=== PATIENT | female | born 1970 | race Caucasian/White ===

== ENCOUNTER 2019-04-28 19:46 | Inpatient (IN) | payer OTHER ==
[~2019-04-28] VITALS: Ht 160 cm; Wt 50.8 kg
[2019-04-28 20:52] VITALS: Ht 160 cm; Wt 50.8 kg
--- NOTE | 2019-04-28 20:55 | NUR ---
PT BIB BLS [facility] FROM AN ADULT CARE FACILITY WITH REPORTS OF MULITPLE EPISPDES OF VOMITING SINCE NOON TODAY. PER MEDIC NO VOMITING NOTED AND PT FEELS "HOT TO TOUCH." PER MEDIC, PT HAS HISTORY OF MENTAL RETARDATION AND IS "AT HER NORMAL BASELINE WHICH IS ALERT, AWAKE, UNABLE TO ANSWER QUESTIONS, AND MAKES NOISES TO SPEAK." PT ABLE TO AMBULATE ON HER OWN AT HER FACILITY SHE LIVES PER MEDIC. PT IS ALERT, AWAKE, AND UNABLE TO ANSWER QUESTIONS, PT ABLE TO POINT AT HER STOMACH WHEN ASKED IF SHE FEELS ANY PAIN, PT MAKES INCOMPREHENSIBLE NOISES TO SPEAK. CUSTOMER SUPPLY CHAIN ANALYST AT THE BEDSIDE AND STATED THE "LAST TIME SHE VOMITED WAS AT 6PM AND SHE HAS NOT BEEN ABLE TO EAT OR DRINK ANYTHING TODAY." NO VOMITING NOTED AT THIS TIME. AWAITING MSE BY . WILL CONT TO MONITOR.
[2019-04-28 21:29] LABS: PLATELET COUNT 161 x10^3mcL (130-400); RED CELL DISTRIBUTION WIDTH 13.9 % (11.5-14.5)
--- NOTE | 2019-04-28 21:36 | NUR ---
DR SLAUGHTER MADE AWARE OF CRITICAL RESULT OF WBC-21.2.
[2019-04-28 21:43] LABS: CALCIUM 8.4 mg/dL (8.5-10.1); CARBON DIOXIDE 22.9 mmol/L (21-32); CHLORIDE SERUM 104 mmol/L (98-107); CREATININE SERUM 0.8 mg/dL (0.6-1.0); GFR1 > 60 mL/min; GLUCOSE SERUM 130 mg/dL (74-106); POTASSIUM SERUM 3.3 mmol/L (3.5-5.1); SODIUM SERUM 138 mmol/L (136-145)
[2019-04-28 21:45] LABS: ALBUMIN 2.8 g/dL (3.4-5.0); ALKALINE PHOSPHATASE 65 U/L (46-116); ALT/SGPT 12 U/L (14-59); AST/SGOT 17 U/L (15-37); BILIRUBIN TOTAL 0.4 mg/dL (0.20-1.00); CHOLESTEROL 104 mg/dL (<200); HDL CHOLESTEROL 57 mg/dL (40-60); LIPASE 217 IU/L (73-393)
[2019-04-28 21:49] LABS: BAND NEUTROPHIL 3 % (0-10); BASOPHIL 0 % (0-2); MONOCYTE 4 % (0-7); SEGMENTED NEUTROPHILS 85 % (37-75)
[2019-04-28 21:50] LABS: rbc morphology (normal/abnorm) NORMAL (NORMAL)
--- NOTE | 2019-04-28 22:06 | NUR ---
FIRST FLUID BOLUS INFUSING, NO INFILTRATION NOTED.
--- NOTE | 2019-04-28 22:45 | NUR ---
PT TOLERATED STRAIGHT CATHETER WELL. OBTAINED URINE SAMPLE. PT BECAME ANXIOUS AND POINTED AT HER PAJAMAS AND TRYING TO GET OUT OF BED. CLOTHED PAJAMAS ON PATIENT. PT AGITATED AND TRYING TO GET OUT OF BED STILL. UNABLE TO SOOTH PATIENT. NOTIFIED DR SLAUGHTER OF AGITATION AND ANXIOUSNESS OF PATIENT. DR SLAUGHTER TO ORDER MEDICATIONS.
--- NOTE | 2019-04-28 22:58 | NUR ---
PT MEDICATED WITH HALDOL AT THIS TIME. PT IS CALM. PT LAYING IN BED WITH A STUFFED PETROLEUM REFINERY OPERATOR GAVE HER. PT IS ALERT AWAKE AND FOLLOWED BORING MACHINE OPERATOR PRODUCTION INSTRUCTION TO LAY IN BED. FLUIDS INFUSING NO PROBLEM. PT ON FULL CM, NSR, VSS, WILL CONT TO MONITOR.
[2019-04-28 23:30] LABS: UA SPECIFIC GRAVITY 1.015 (1.005-1.035); microscopic required? YES; urine erythrocyte 2+ (NEGATIVE)
[2019-04-29] VITALS (7 sets, daily range): BP systolic 89–113; BP diastolic 41–80
--- NOTE | 2019-04-29 | NUR ---
PT RIGHT SIDE LAYING WITH EYES CLOSED, AROUSABLE TO TOUCH, PT IN NO DISTRESS, RESP E/U, SKIN PINK WARM AND DRY. PT ON MONITOR, VSS, WILL CONT TO MONITOR. COCOA PRESS OPERATOR SON ESPERANZA PANDYA TAKE HIS MOM HOME AND COME BACK.
[2019-04-29] MEDS ORDERED: FERROUS SULFAT325 M2 (00:20)
[2019-04-29] MEDS ORDERED: CLARITIN10 MG PO (00:20)
--- NOTE | 2019-04-29 01:13 | NUR ---
PER DR KASANDRA SULLIVAN OK TO MOVE PATIENT OFF THE FLOOR TO [facility]. PT IS RESTING IN RIGHT SIDE LAYING POSITION OF COMFORT, NO DISTRESS NOTED, RESP E/U, SKIN IS PINK WARM AND DRY. REPORT GIVEN TO LIANNA PERALES ON [facility] FLOOR WHO WILL ASSUME FURTHER CARE OF THIS PATIENT.
--- NOTE | 2019-04-29 01:32 | NUR ---
ADMITTED PT FROM ER WITH CC. VOMITING TO COFFEE GROUND EMESIS AND FEVER TODAY.PT HAS MENTAL RETARDATION.APHASIC BUT ABLE TO DO HAND GESTURE TO COMMUNICATE.BOARD AND COAGULANT DIPPER-HEIDI FLOYD AT BEDSIDE AND PROVIDED INFORMATION ABOUT PT.BP 113/62 MMHG,HR 62.ADMISSION CARE RENDERED.KEPT WARM AT THIS TIME PREFERRED BY PT.NO N/V NOTED AT THIS TIME.BEDALARM ON AT ALL TIMES.WILL CONTINUE TO MONITOR.
[2019-04-29 01:54] LABS: MAGNESIUM 1.8 mg/dL (1.8-2.4)
[2019-04-29 01:55] LABS: CHOLESTEROL/HDL RATIO 1.9
--- NOTE | 2019-04-29 04:49 | NUR ---
PT SLEPT WELL SINCE ADMISSION.NO N/V NOTED.NO ASE NOTED FROM ROCEPHIN IV ATB GIVEN IN ER.ALL NEEDS MET.BEDALARM ON AT ALL TIMES.WILL CONTINUE TO MONITOR.
--- NOTE | 2019-04-29 07:30 | NUR ---
PT IS NONVERBAL, UNABLE TO ACCESS ORIETATION. PT USES HAND SIGNALS TO COMMUNICATE MINIMAL NEEDS. PT DENIES H/A AND DIZZINESS. RESP EVEN AND UNLABORED. NO DISTRESS NOTED. NORMAL S1S2 NOTED. ABDOMEN SOFT, NON TENDER, NONDISTENDED. BOWELS SOUNDS ACTIVE X4 QUADS. PT HAS C/O N/V DURING NOC. SHIFT. SKIN CDI. NO EDEMA. IV CATH N/S LOCKED TO R HAND 20G, PATENT. SITE WNL. CALL LIGHT WITHIN REACH. FALL PROTOCOL FOLLOWED. AIR MATRESS IN PLACE. PT TURNS AND REPOSITIONS IN BED BY SELF. PT WILL BE PROMPTED TO TURN AND REPOSITION Q 2 HOURS AND NEEDED. CALL LIGHT WITHIN REACH.
--- NOTE | 2019-04-29 08:48 | NUR ---
TYLENOL 650MG PO GIVEN CRUSHED IN CHOCOLATE SUGER FREE PUDDING FOR TEMP OF 102.5. COOLING MEASURES IN PLACE. PT WEAK AND NONVERBAL. CALL LIGHT WITHIN REACH. BED IN LOWEST POSTION. WILL CONTINUE TO MONITOR.
--- NOTE | 2019-04-29 09:25 | NUR ---
PAGED DR. TORRES TO REPORT PT HAD GRAM NEGATIVE RODS IN THE BLOOD AND TEMP OF 102.5F. AWAITING CALL BACK. PT MADE AWARE.
--- NOTE | 2019-04-29 09:45 | NUR ---
PT TEMP IS NOW 99.1F. COOLING MEARSURES IN PLACE. PT NOT TOLERATING FOOD AT THIS TIME. PT IS NAUSEUS AND WEAK. HAS NOT EATEN BREAKFAST. EXTRA FLUIDS GIVEN AND ENCOURAGED. CALL LIGHT WITHIN REACH. BED IN LOWEST POSITION.
--- NOTE | 2019-04-29 09:45 | NUR ---
PT TEMP IS NOW 99.1F. COOLING MEARSURES IN PLACE. PT NOT TOLERATING FOOD AT THIS TIME. PT IS NAUSEOUS AND WEAK. HAS NOT EATEN BREAKFAST. EXTRA FLUIDS GIVEN AND ENCOURAGED. CALL LIGHT WITHIN REACH. BED IN LOWEST POSITION.
--- NOTE | 2019-04-29 10:01 | NUR ---
REPORTED TO DR. TORRES THAT PT'S HAS GRAM NEGATIVE RODS IN BLOOD, PT REFUSED LAB DRAWS THIS MORNING, AND PT HAS TEMP 102.5 WITH COOING MEASURES IN PLACE. PT'S TEMP HAS REDUCED TO 99.1F.
--- NOTE | 2019-04-29 10:16 | NUR ---
DR. CRAWFORD AND MED TEAM MET WITH PT. PT WILL HAVE LABS DRAWN FOR EVAL, S/T EVAL AND FUTHER EVALUATION.
--- NOTE | 2019-04-29 10:37 | NUR ---
SPEECH THERAPIST ATTEMPTED TO DO S/T EVAL. PT REFUSED TREATMENT. SPEECH THERAPIST PERRY STATED HE WILL TRY ANOTHER TEST TOMORROW.
[2019-04-29 10:52] LABS: PLATELET COUNT 133 x10^3mcL (130-400); RED CELL DISTRIBUTION WIDTH 13.9 % (11.5-14.5)
[2019-04-29 10:53] LABS: BASOPHIL % 0 % (0-2)
[2019-04-29 11:40] LABS: CALCIUM 7.6 mg/dL (8.5-10.1); CARBON DIOXIDE 22.3 mmol/L (21-32); CHLORIDE SERUM 108 mmol/L (98-107); GFR1 > 60 mL/min; GLUCOSE SERUM 130 mg/dL (74-106); POTASSIUM SERUM 3.5 mmol/L (3.5-5.1); SODIUM SERUM 140 mmol/L (136-145)
--- NOTE | 2019-04-29 13:40 | NUR ---
DUE MED GIVEN AND TOLERATED WELL. PT IS NORMOTHERMIC AT THIS TIME. RESP EVEN AND UNLABORED. NO DISTRESS NOTED. PT DENIES PAIN. VENEER GRADER AT BEDSIDE. CALL LIGHT WITHIN REACH.
--- NOTE | 2019-04-29 17:28 | NUR ---
ZOFRAN 4MG IVP GIVEN FOR N/V. TYLENOL 650MG PO GIVEN CRUSHED IN APPLE SAUCE FOR TEMP OF 103.4. COOLING MEASURES IN PLACE. RESP EVEN AND UNLABORED. WILL CONTINUE TO MONITOR. 2 CARETAKERS AT BEDSIDE. CALL LIGHT WITHIN REACH.
--- NOTE | 2019-04-29 18:28 | NUR ---
PT IS AAOX1 TO SELF, NONVERBAL. PT HAS TEMP OF 103.4 AT TIME. COOLING MEASURES IN PLACE. PT KEEPS REMOVING COOLING MEASURES. WILL CONTINUE TO MONITOR. RESP EVEN AND UNLABORED. IV CATH NS LOCKED. SITE WNL. BED IN LOW POSTION. PT TURNED AND REPOSTIONED SELF THROUGHOUT SHIFT. AIR MATRESS IN PLACE FOR SKIN MAINTENANCE. CALL LIGHT WITHIN REACH. FALL PROTOCOL FOLLOWED. BED IN LOWEST POSTION. WILL ENDORSE ALL CARE TO NOC RN.
--- NOTE | 2019-04-29 19:40 | NUR ---
RECEIVED REPORT FROM AM NURSE. PT LAYING DOWN IN BED WITH EYES CLOSED. PT NONVERBAL, USES FACIAL GESTURES AND HEAD NODDING TO COMMUNICATE. MED-KRISHAN, NO S/S OF PAIN. PALPABLE PULSES TO ALL EXTREMETIES. NO EDEMA NOTED. DIMINISHED BREATH SOUNDS TO LOWER LOBES. BREATHING EVEN AND UNLABORED ON RA. NO ACUTE DISTRES NOTED. ABD SOFT AND FLAT. ACTIVE BS X4 QUAD. INCONTINENT TO URINE. GENERALIZED WEAKNESS. BEDFAST AT THIS TIME. WAITING FOR PT EVAL. IV TO RFA PATENT AND INTACT. SITE FREE FROM REDNESS AND SWELLING. BED AT LOWEST SETTING. SIDE RAILS X2 UP. CALL LIGHT WITHING REACH. WILL CONTINUE TO MONITOR.
--- NOTE | 2019-04-29 21:55 | NUR ---
PT BP 95/41, PT AWAKE, RESPONDS TO VERBAL STIMULI. DR SMITH MADE AWARE. RECEIVED ORDER FOR 250CC NS BOLUS. BOLUS STARTED RIGHT NOW.
--- NOTE | 2019-04-29 23:05 | NUR ---
BOLUS OF 250CC NS FINSHED AT THIS TIME. CURRENT BP 96/53 MAP 65, HR 49. NO ACUTE DITRESS NOTED. DR SMITH MADE AWARE OF VITALS. STATES PT WILL PUT ON TELE. PER DR SMITH, IV FLUIDS WILL BE HOLD FOR NOW. WILL CONTINUE TO MONITOR.
--- NOTE | 2019-04-30 00:14 | NUR ---
PT LAYING DOWN IN BED WITH EYES CLOSED. BREATHING EVEN AND UNLABORED ON RA. NO ACUTE DISTRESS NOTED. BED AT LOWEST SETTING WITH HOB ELEVATED. SIDE RAILS X2 UP. CALL LIGHT WITHING REACH. WILL CONTINUE TO MONITOR.
--- NOTE | 2019-04-30 04:39 | NUR ---
PT TELE READING JUNCTIONAL, HR 51. ASYMPTOMATIC. DR SMITH MADE AWARE. NO NEW ORDERS RECEIVED. WILL CONTINUE TO MONITOR.
[2019-04-30 06:02] VITALS: BP 100/78
[2019-04-30 06:23] LABS: RED CELL DISTRIBUTION WIDTH 14.1 % (11.5-14.5)
--- NOTE | 2019-04-30 06:30 | NUR ---
PT SLEPT AT INTERVALS THROGHOUT THE NIGHT. BREATHING EVEN AND UNLABORED ON RA. NO ACUTE DISTRESS NOTED. PT HURLEY AN EPISODE OF STOOL. CAROLINE CARE RENDERED, PT TOLERATED WELL. ALL NEEDS ASSESSED AND ATTENDED. IV TO RFA FLUSHING WELL. SITE WNL. BED AT LOWEST SETTING. SIDE RAILS X2 UP. CALL LIGHT SURJIT REACH. WILL ENDORSE CARE TO AM NURSE.
[2019-04-30 06:31] LABS: CARBON DIOXIDE 22.6 mmol/L (21-32); CHLORIDE SERUM 110 mmol/L (98-107); CREATININE SERUM 0.9 mg/dL (0.6-1.0); GFR1 > 60 mL/min; GLUCOSE SERUM 112 mg/dL (74-106); MAGNESIUM 1.9 mg/dL (1.8-2.4); POTASSIUM SERUM 3.5 mmol/L (3.5-5.1); SODIUM SERUM 143 mmol/L (136-145)
[2019-04-30 07:51] LABS: PLATELET COUNT 120 x10^3mcL (130-400)
--- NOTE | 2019-04-30 08:00 | NUR ---
SHIFT ASSESSMENT DONE. PATIENT ALERT, NON VERBRAL. TELE# 11; JUNCTIONAL; HR = 48. BREATHING SOUND DIMINISHED ZEFERINO BASES. O2 SAT 94% ON RA. NO S/S OF PAIN. IVHL'D TO R HAND. PATIENT HAS HX OF CEREBRAL PALSY. NPO PER ORDER. HAD NAUSEA AT TIMES. BM LAST SHIFT. ABLE TO REMOVE ALL EXTREMITIES IN BED. BED ALARM ON.
[2019-04-30 09:40] VITALS: BP 109/56; BP 153/69
--- NOTE | 2019-04-30 11:12 | NUR ---
PT WAS SEEN FOR DYSPHAGIA. PT WAS ABLE TOS AFELY SWALLOW PUREE DIET WITH THIN LIQUID WITHOUT S/S OF ASPIRATION. PT NEEDS REMINDER TO EAT SLOWELY AND FOR SMALL BITES. RECOMMENDATION PUREE DIET WITH THIN LIQUID SMALL BITES AND SIPS ONLY 1:1 SUPERVISION.
[2019-04-30 11:59] LABS: BAND NEUTROPHIL 8 % (0-10); MONOCYTE 3 % (0-7); SEGMENTED NEUTROPHILS 87 % (37-75)
[2019-04-30 12:00] LABS: BASOPHIL 0 % (0-2); PLATELET MORPHOLOGY PLATELETS DECREASED; rbc morphology (normal/abnorm) ABNORMAL (NORMAL)
[2019-04-30 12:45] VITALS: BP 121/57
--- NOTE | 2019-04-30 13:10 | NUR ---
RECEIVED PT FROM ANGELLA GOLDSTEIN. PT IS LYING IN BED, AWAKE AND ALERT. NON-VERBAL. NO S/S OF PAIN AND SOB NOTED. ABDOMEN IS SOFT. BOWEL SOUNDS HYPOACTIVE. W/ ABRASION ON THE CHIN AREA AND ECCHYMOSIS ON THE LUE. IV SITE PATENT AND INTACT. SIDE RAILS UPX2. CALL LIGHT ON REACH. PT'S CAREGIVER AT BEDSIDE. WILL CONT TO MONITOR
--- NOTE | 2019-04-30 13:20 | NUR ---
SWALLOW EVAL DONE. ON PUREED DIET. PATIENT HAD N/V W/ ORANGE JUICE AND APPLE SAUCE. ENDROSED CARE TO ANGELLA BRIDGES.
[2019-04-30 16:55] VITALS: BP 113/64
--- NOTE | 2019-04-30 17:08 | NUR ---
PT LYING IN BED, ALERT AND AWAKE, NO S/S OF PAIN AND SOB. REMAINS JUNCTIONAL ON THE MONITOR, PER RN ANGELITA CRAWFORD WAS AWARE OF PT'S JUNCTIONAL RHYTHM. ON AIR MATTRESS. BED ALARM ON. BED ON THE LOWEST POSITION. HOB ELEVATED AT 30 DEG. NEEDS ARE ATTENDED. IV SITE PATENT AND INTACT. WILL CONT TO MONITOR
--- NOTE | 2019-04-30 18:48 | NUR ---
PT LYING IN BED, NO S/S OF PAIN AND SOB. IV SITE PATENT AND INTACT. ENDORSED TO CHARGE NURSE ZACARIAS FOR CONTINUITY OF CARE
--- NOTE | 2019-04-30 18:58 | NUR ---
ENDORSED TO INCOMING NURSE TO LOLA FOR CONTINUITY OF CARE
--- NOTE | 2019-04-30 19:00 | NUR ---
RECEIVED REPORT FROM DAY SHIFT RN. PATIENT WAS SEEN RESTING IN BED. NONVERBAL, BUT IS ABLE TO MAKE NEEDS KNOWN WITH GESTURES. NO DISTRESS NOTED. BREATHING EVEN AND UNLABORED ON ROOM AIR. NO SOB OR RESP DISTRESS NOTED. DENIES PAIN AND NO S/S OF PAIN NOTED. NO INDICATED OF CHEST PAIN. IV TO THE RIGHT HAND. SALINE LOCK. PATENT AND INTACT. NO REDNESS OR SWELLING NOTED. BED ALARM ON. ROOM NEAR NURSES STATION. COMFORT AND SAFETY MEASURES IN PLACE. CALL LIGHT IS WITHIN REACH. BED IS LOCKED AND IN THE LOWEST POSITION. AIR MATTRESS. WILL CONITNUE TO MONITOR. PATIENT WAS GIVEN WATER AND THREW UP RIGHT AFTER. ASPIRATION PRECAUTIONS IN PLACE. THREAD GRINDER CLEANED PATIENT UP.
--- NOTE | 2019-04-30 19:40 | NUR ---
PATIENT GOT OOB AND TRYING TO GET PITCHER OF WATER. EDUCATED PATIENT TO NOT GET OOB AND STILL DID NOT GO BACK TO BED. GAVE SOME WATER AND PATIENT HAD ANOTHER AND SMALL CLEAR EMESIS. PATIENT WENT BACK TO BED. MADE COMFORTABLE AND EDUCATED TO NOT GET OUT OF BED. PATIENT NODDED. BED ALARM ON. NO DISTRESS NOTED. BREATHING EVEN. CALL LIGHT WITHIN REACH. WILL CONTINUE TO MONITOR.
[2019-04-30 20:45] VITALS: BP 112/63
--- NOTE | 2019-04-30 20:55 | NUR ---
SCHEDULED PEPCID GIVEN CRUSHED W/ APPLE SAUCE. PATIENT TOLERATED WELL. ALSO GAVE PATIENT SMALL SIPS IF WATER. TOELRATED WELL. NO EMESIS NOTED. NO DISTRESS NOTED. BREATHING EVEN AND UNLABORED. CALL LIGHT IS WITHIN REACH. WILL CONTINUE TO MONITOR.
--- NOTE | 2019-05-01 00:39 | NUR ---
AWAKE IN BED. NO DISTRESS NOTED. BREATHING EVEN AND UNLABORED. NO SOB OR REP DISTRESS NOTED. NO S/S OF PAIN. BED ALARM ON. SAFETY MEASURES IN PLACE. CALL LIGHT IS WITHIN REACH. WILL CONTINUE TO MONITOR.
--- NOTE | 2019-05-01 02:03 | NUR ---
REPORTED TO DR SMITH THAT PHOS IS 2.1 VIA PAGE GATE
--- NOTE | 2019-05-01 02:39 | NUR ---
RESTING IN BED W/ EYES CLOSED. NO DISTRESS NOTED. BREATHING EVEN AND UNLABORED. NO SOB OR RESP DISTRESS NOTED. NO S/S OF PAIN NOTED. CALL LIGHT IS WITHIN REAC. WILL CONTINUE TO MONITOR.
[2019-05-01 05:51] VITALS: BP 106/60
[2019-05-01 05:56] LABS: PLATELET COUNT 146 x10^3mcL (130-400); RED CELL DISTRIBUTION WIDTH 14.1 % (11.5-14.5)
--- NOTE | 2019-05-01 06:21 | NUR ---
RESTED IN SHORT INTERVALS THROUGHOUT. NO DISTRESS NOTED. BREATHING EVEN AND UNLABORED ON ROOM AIR. NO SOB OR RESP DISTRESS NOTED. NO C/O OR S/S OF PAIN. DENIES CHEST PAIN/PRESSURE. IV TO THE RH. PATENT AND INTACT. NO REDNESS OR SWELLING NOTED. SIPS OF WATER GIVEN THROUGHOUT THE NIGHT. TOLERATED WELL. EMESIS ONLY AT THE START OF SHIFT X1. BED ALARM ON. SAFETY MEASURES IN PLACE. CALL LIGHT IS WITHIN REACH. WILL ENDORSE CARE TO DAY SHIFT RN.
--- NOTE | 2019-05-01 06:45 | NUR ---
PATIENT ON MENSES.
[2019-05-01 07:25] LABS: CALCIUM 8.1 mg/dL (8.5-10.1); CARBON DIOXIDE 24.1 mmol/L (21-32); CHLORIDE SERUM 110 mmol/L (98-107); CREATININE SERUM 0.9 mg/dL (0.6-1.0); GFR1 > 60 mL/min; GLUCOSE SERUM 110 mg/dL (74-106); POTASSIUM SERUM 3.4 mmol/L (3.5-5.1); SODIUM SERUM 144 mmol/L (136-145)
--- NOTE | 2019-05-01 07:40 | NUR ---
PATIENT RESTING IN BED, NO ACUTE DISTRESS NOTED. TELE MONITOR IN PLACE. PATIENT IS ALERT, UNABLE TO ASSESS ORIENTATION DUE TO PATIENT BEING NONVERBAL, PATIENT ABLE TO MAKE NEEDS KNOW WITH GESTURES.NO RESP DISTRESS NOTED, ON ROOM AIR. PATIENT ON ASPIRATION PRECAUTIONS. AIR MATRESS IN PLACE. IV TO RFA SALINE LOCK, CDI & PATENT, NO S/S OF INFILTRATION. CALL LIGHT WITHIN REACH, BED IN LOW POSITION, BED ALARM ON FOR SAFETY PRECAUTION. WILL CONTINUE TO MONITOR.
[2019-05-01 07:52] LABS: BAND NEUTROPHIL 10 % (0-10); BASOPHIL 0 % (0-2); MONOCYTE 5 % (0-7); SEGMENTED NEUTROPHILS 75 % (37-75)
[2019-05-01 07:54] LABS: PLATELET MORPHOLOGY PLATELETS NORMAL; rbc morphology (normal/abnorm) ABNORMAL (NORMAL)
[2019-05-01 08:09] VITALS: BP 104/58
--- NOTE | 2019-05-01 10:00 | NUR ---
JADEN STOLL MADE AWARE PATIENT K WAS 3.4 & PHOS WAS 2.0. NO NEW ORDERS AT THIS TIME.
[2019-05-01] MEDS ORDERED: BUSPIRONE HCL15 MG PO (11:39)
--- NOTE | 2019-05-01 11:48 | NUR ---
JADEN STOLL MADE AWARE THAT PATIENT WAS FOUND WITH EMPTY BOTTLE OF WOUND CLEANSER IN HER HAND, HER SHEETS WERE NOTED SLIGHTLY WET, PATIENT IS UNABLE TO VERBALIZE WHETHER SHE DRANK IT OR NOT. JADEN STOLL MADE AWARE OF CONCERNS. HOME MEDS UPDATED TO EMAR, JADEN STOLL AWARE.
[2019-05-01 12:13] VITALS: BP 112/68
--- NOTE | 2019-05-01 16:48 | NUR ---
JADEN STOLL MADE AWARE OF PATIENT URINE CX SENSITIVITY RESULTS.
[2019-05-01 17:04] VITALS: BP 126/63
--- NOTE | 2019-05-01 18:04 | NUR ---
PATIENT RESTING IN BED, FAMILY AT BEDSIDE. NO ACUTE DISTRESS NOTED. PATIENT DENIES PAIN. DENIES NAUSEA/VOMITING. NO ACUTE CHANGES NOTED THROUGH OUT SHIFT, PATIENT IS STABLE. IV TO RFA SALINE LOCK, NO S/S OF INFILTRATION. CALL LIGHT WITHIN REACH, BED IN LOW POSITION. WILL CONTINUE TO MONITOR AND ENDORSE REPORT.
--- NOTE | 2019-05-01 19:25 | NUR ---
RECEIVED PT IN BED AWAKE AND RESTING QUIETLY. SHE IS NON-VERBAL BUT ABLE TO MAKE HER NEEDS KNOWN BY GESTURES. LUNGS CTA. NO SOB ON ROOM AIR; BOWEL SOUNDS ACTIVE. PT HAS NO C/O ABDL PAIN AT THIS TIME. SHE WAS ABLE TO SIP WATER. NO C/O N/V AT THIS TIME. CALL LIGHT W/IN REACH.
[2019-05-01 21:30] VITALS: BP 98/53
--- NOTE | 2019-05-02 00:26 | NUR ---
PT APPEARS CALM AND SLEEPING COMFORTABLY.
--- NOTE | 2019-05-02 05:12 | NUR ---
PT SLEPT ON AND OFF. SHE HAD NO C/O PAIN. SHE HAD NO EPISODE OF NAUSEA AND VOMITING. PT REQUESTED FOR SIPS OF WATER DURING THE NIGHT. SHE WAS ABLE TO SWALLOW WELL W/ ASPIRATION PRECAUTION. SHE HAD NO BM THIS SHIFT. PT STILL ON HER MENSTRUAL PERIOD. ALL NEEDS ATTENDED TO. SAFETY MEASURES MAINTAINED.
[2019-05-02 05:53] VITALS: BP 111/61
--- NOTE | 2019-05-02 08:00 | NUR ---
APTIENT RECEIVED AWAKE, NON VERBAL AND PLEASEANT. PATIENTHAS DIMINSIEHD BREATH SOUNDS AND HAS BEEN ON ASPIRATION PRECAUTIONS AND PATIENT HAS BE ON PUREE DIET AND MONITOR FOR INTAKE AND SWALLOWING DIFFICULTY. PATIENT HAS PUSLES PALPABLE TO ALL EXTREM AND WITH HISTORY OF CEREBRAL PALSY AND PATIENT HAS NO INDICATION OF DISTRESS AT THIS TIME. SHE HAS RECEIVED THE ROCEPHIN AND NO ADVERSE REACTION. HX OF RHINITIS, ANXIETY. METAL RETARDATION. PATIENT AHS BEEN JUNCTIONAL ON THE MONITOR AND SHE HAS BEEN ON A AIR MATRESS. SKIN HAS MULTIPLE ABRASIONS AND BRUISING. NOTED A ABRASION TO THE CHIN. SHE IS POSITIVE FOR UTI AND IS INCONTINENT OF URINE AND BOWEL. CHEST XRAY SHOW A LEFT LUNG AIRSPACE DISEASE BUT DOES NOT APPEAR SOB OR HAS SIGNS OF ASPIRATION AT THIS TIME.WILL CONTINUE TO MONITOR.
[2019-05-02 08:15] VITALS: BP 103/52
--- NOTE | 2019-05-02 09:30 | NUR ---
GAVE MEDIATION CRUSHED IN APPLESAUSE AND TOLERATED WELL
[2019-05-02 09:34] LABS: CALCIUM 8.5 mg/dL (8.5-10.1); CARBON DIOXIDE 28.1 mmol/L (21-32); CHLORIDE SERUM 110 mmol/L (98-107); CREATININE SERUM 0.8 mg/dL (0.6-1.0); GFR1 > 60 mL/min; GLUCOSE SERUM 118 mg/dL (74-106); POTASSIUM SERUM 3.3 mmol/L (3.5-5.1); SODIUM SERUM 146 mmol/L (136-145)
[2019-05-02 10:17] LABS: BASOPHIL % 0.1 % (0-2); PLATELET COUNT 174 x10^3mcL (130-400); RED CELL DISTRIBUTION WIDTH 14.4 % (11.5-14.5)
[2019-05-02 12:35] VITALS: BP 115/67
--- NOTE | 2019-05-02 13:19 | NUR ---
FAMILY AT BEDSIDE AND FEEDIGN THE PATIENT.PATIETN SO FAR HAS NO VOMITING. WILL CONTINUE TO MONITOR.
[2019-05-02 17:02] VITALS: BP 95/62
--- NOTE | 2019-05-02 17:25 | NUR ---
PATIENT OFFERE THE POASSIUM IN OJ AND SHE HAS BEEN DRINKING SLOWLY BUT WILL NEED TO ENCOURAGE THIS MIX WITH PATASSIUM AND THE INDICATIONS.
--- NOTE | 2019-05-02 19:20 | NUR ---
RECEIVED PT IN BED AWAKE, ALERT,ORIENTED TO PERSON ONLY. PT IS NON-VERBAL BUT ABLE TO MAKE NEEDS KNOWN BY GESTURES. NO SOB ON ROOM AIR. BOWEL SOUNDS ACTIVE. SHE HAS NO C/O PAIN. PER REPORT SHE HAD NO EPISODE OF VOMITING TODAY. W/ HL TO RTFA INTACT. CALL LIGHT W/IN REACH.
--- NOTE | 2019-05-02 21:00 | NUR ---
PT WAS ABLE TO TAKE PO MEDS CRUSHED AND MIXED WITH APPLE SAUCE. NO VOMITING OCCURRED.
[2019-05-02 21:19] VITALS: BP 98/47
--- NOTE | 2019-05-02 22:42 | NUR ---
PT APPEARS TO BE SLEEPING COMFORTABLY.
--- NOTE | 2019-05-03 02:26 | NUR ---
PT SLEEPING ON AND OFF. SHE IS CALM AND HAS NO C/O PAIN OR DISCOMFORT AT THIS TIME.
[2019-05-03 04:53] VITALS: BP 104/57
--- NOTE | 2019-05-03 05:13 | NUR ---
PT AWAKE AND RESTING QUIETLY. SHE SLEPT ON AND OFF AND WAS CALM THROUGHOUT THE NIGHT. NO EPISODE OF VOMITING. SHE WAS ABLE TO TAKE HER MEDS CRUSHED AND MIXED W/ APPLE SAUCE. SHE IS ABLE TO SIP WATER WELL. PT HAD NO BM THIS SHIFT. HL TO RTFA INTACT. ALL NEEDS ATTENDED TO. SAFETY MEASURES ENFORCED.
--- NOTE | 2019-05-03 05:58 | NUR ---
PT HAD A LARGE FORMED BM. CLEANED PT AND KEPT WARM AND COMFORTABLE.
--- NOTE | 2019-05-03 07:30 | NUR ---
PPT IS AAOX1 TO SELF, NONVERBAL, GESTURES AND POINTS TO COMMUNICATE. CAN FOLLOW SOME COMMANDS. RESP EVEN AND UNLABORED. TELE [address] READING NSR. LUNG SOUNDS CTA. ON R/A. NO COUGH OR SOB NOTED. ABDOMEN SOFT, NONTENDER, NONDISTENDED. BOWEL SOUNDS ACTIVE X4 QUADS. NO S/S OF N/V/D OR CONSTIPATION. LAST B/M TODAY 05/03/19. SKIN CDI. PERIPHERAL PULSES PALPABLE. NO EDEMA NOTED IV CATH TO RFA N/S LOCKED, FLUSHED AND PATENT. NO S/S OF INFECTION OR INFILTRATION AT SITE. PT NODS HEAD GESTERING NO WHEN QUESTIONED IF SHE HAS ANY PAIN OR DISCOMFORT. NO S/S OF PAIN OR DISCOMFORT NOTED. CALL LIGHT WITHIN REACH. BED IN LOWEST POSITION. FALL PROTOCOL FOLLOWED. BED ALARM ON. AIR MATRESS IN PLACE FOR SKIN MAINTENANCE. PT CAN TURN AND REPOSITION SELF.
[2019-05-03 09:26] VITALS: BP 98/59
--- NOTE | 2019-05-03 10:00 | NUR ---
DUE MEDS GIVEN CRUSHED IN APPLE SAUCE, PT TOLERATED MEDS WELL WITH SMALL SIPS OF WATER. PT GESTERED TO STOMACH WHEN ASKED IF IN PAIN. PT UNABLE TO COMMUNICATE PAIN LEVEL AND INTENSITY. TYLENOL WILL BE GIVEN. CALL LIGHT WITHIN REACH. BED ALARM ON. FALL PROTOCOL FOLLOWED.
--- NOTE | 2019-05-03 10:35 | NUR ---
TYLENOL 325MG LIQUID PO GIVEN FOR ABDOMINAL PAIN. PT UNABLE TO INDICATE INTENSITY. NO DISTRESS NOTED. CALL LIGHT WITHIN.
--- NOTE | 2019-05-03 11:01 | NUR ---
+PPT IS AAOX1 TO SELF, NONVERBAL, GESTURES AND POINTS TO COMMUNICATE. CAN FOLLOW SOME COMMANDS. RESP EVEN AND UNLABORED. TELE [address] READING NSR. LUNG SOUNDS CTA. ON R/A. NO COUGH OR SOB NOTED. ABDOMEN SOFT, NONTENDER, NONDISTENDED. BOWEL SOUNDS ACTIVE X4 QUADS. NO S/S OF N/V/D OR CONSTIPATION. LAST B/M TODAY 05/03/19. SKIN CDI. PERIPHERAL PULSES PALPABLE. NO EDEMA NOTED. IV CATH TO RFA N/S LOCKED, FLUSHED AND PATENT. NO S/S OF INFECTION OR INFILTRATION AT SITE. PT NODS HEAD GESTERING NO WHEN QUESTIONED IF SHE HAS ANY PAIN OR DISCOMFORT. NO S/S OF PAIN OR DISCOMFORT NOTED. CALL LIGHT WITHIN REACH. BED IN LOWEST POSITION. FALL PROTOCOL FOLLOWED. BED ALARM ON. AIR MATRESS IN PLACE FOR SKIN MAINTENANCE. PT CAN TURN AND REPOSITION SELF.
--- NOTE | 2019-05-03 12:53 | NUR ---
PT IS WAS ASSISTED TO THE BED SIDE CHAIR. PT'S BEDDING AND GOWN CHANGED. PT TOLERATING SITTING IN BEDSIDE CHAIR WELL, RESP EVEN AND UNLABORED. NO DISTRESS NOTED. CALL LIGHT WITHIN REACH. PT'S [employer] LABOURER AT BEDSIDE. CALL LIGHT WITHIN REACH.
[2019-05-03] MEDS ORDERED: BACTRIM DS1 TAB PO (13:54)
[2019-05-03 14:17] VITALS: BP 94/42
--- NOTE | 2019-05-03 15:14 | NUR ---
PT DISCHARGED TO [facility] AND CARE IN NO DISTRESS, CROSS CUT SAWYER PRESENT DURING DISCHARGE. ALL DISCHARGE INSTRUCTIONS REVIEWED. ALL FORMS SIGNED AND PLACED IN CHART. TELE 11 TAKEN OFF PT AND RETURNED TO TELEMONITOR. IV CATH TO RFA REMOVED INTACT, SITE WNL. NO S/S OF INFECTION OR INFILTRATION NOTED. COVERED WITH CDI GAUZED AND BANDAID. VS: T 99.1F,M P 74, RR 20, B/P 94/42, O2 SAT 94 % ON R/A. PT DENIES PAIN UPON DISCHARGE. ALL PERSONAL BELONGINGS TAKEN WITH PT.
== END 2019-05-03 15:10 | DRG 241 ==
LOC: ED 19:46 → MU 04-29 00:16 → DU 04-29 00:16 → EDBEDREQ 04-29 00:31 → MU 04-29 01:34 → DU 04-29 23:25
PROVIDERS: Emergency Medicine; ADMIT Internal Medicine
DX: K29.70 Gastritis, unspecified, without bleeding (principal); E44.0 Moderate protein-calorie malnutrition; R78.81 Bacteremia; R15.9 Full incontinence of feces; N39.0 Urinary tract infection, site not specified; B96.20 Unspecified Escherichia coli [E. coli] as the cause of diseases classified elsewhere; R32 Unspecified urinary incontinence; E87.6 Hypokalemia; G80.9 Cerebral palsy, unspecified; D50.9 Iron deficiency anemia, unspecified; F79 Unspecified intellectual disabilities; Z68.1 Body mass index [BMI] 19.9 or less, adult
CPT/HCPCS: 83880; 92526-GN; 92610-GN; C9113; G0378; J0692; J0696; J1630; J2405; J2543; J3370; J3480; J3490; J7030; J7040; J7050; J7060; Q0092